=== PATIENT | female | born 1970 | race Caucasian/White ===

== ENCOUNTER 2017-09-25 12:32 | Emergency (ER) | payer OTHER, SELFPAY ==
[2017-09-25 12:36] VITALS: BP 151/86; PULSE 83; RESP 17; TEMP 37.3; O2SAT 95; BMI 74.4
--- NOTE | 2017-09-25 13:38 | ED.DCSUM_ITS ---
- ER Visit Summary Date of Service: 09/25/17 Chief Complaint: Laceration History of Present Illness: The patient is a 47 F presenting with laceration to left frontal scalp. She states she was getting into her car and hit her head on the visor. She did not lose consciousness. No amnesia to the event. No headache or vomiting. She is not on anticoagulants. Her tetanus is up-to- date. No other injuries. Physical Examination: Vitals are stable. Patient is afebrile. Alert no acute distress. HEENT exam is unremarkable. 3.5 cm right frontal scalp laceration Neck is nontender Lungs are clear and equal bilaterally. Heart is regular rate and rhythm. Abdomen is soft nontender nondistended. Extremities are unremarkable. Skin is warm and dry. No focal neurologic deficit. Remainder of exam is unremarkable. Emergency Department Course and Treatment: Laceration was repaired under sterile conditions. Anesthetized with lidocaine. Irrigated with saline. 5 pedro were placed. Patient tolerated this well. Advised to follow-up with her primary care physician. Advised return to ED for worsening complaints. Disposition: Discharge home Impression: Scalp laceration, laceration repair This note was generated with [employer] dictation software. It may contain incorrect words, spelling, and punctuation that were not noted in review of the chart prior to signing ED Disposition - Plan for ED Patient: Chief Complaint: Laceration Referrals: [facility],Out of [Primary Care Provider] -
--- NOTE | 2017-09-25 14:33 | ED.DEP ---
ED Disposition - Plan for ED Patient: Chief Complaint: Laceration Instructions: ED Laceration All Referrals: [facility],Out of [Primary Care Provider] -
[2017-09-25 14:45] VITALS: BP 133/89; PULSE 70; RESP 17; O2SAT 98
--- NOTE | 2017-09-25 14:46 | ED.RN ---
pt given written and verbal discharge instructions. pt verbalizes understanding denies any further questions. to follow up with primary drSymone in 7 days to have pedro out.
== END 2017-09-25 14:52 | disposition home or self-care (01) ==
LOC: ED 13:38
PROVIDERS: Emergency Provider Emergency Medicine
DX: S01.01XA Laceration without foreign body of scalp, initial encounter (principal); W22.8XXA Striking against or struck by other objects, initial encounter; Y93.9 Activity, unspecified; Y92.9 Unspecified place or not applicable; Y99.9 Unspecified external cause status; I10 Essential (primary) hypertension; Z79.899 Other long term (current) drug therapy
CPT/HCPCS: 12002; 99285